=== PATIENT | female | born 1975 | race African-American/Black ===

== ENCOUNTER 2018-02-09 06:02 | Inpatient (IN) | payer OTHER ==
[2018-02-09] VITALS (15 sets, daily range): BP systolic 104–124; BP diastolic 56–80
[~2018-02-09] VITALS: Ht 160 cm; Wt 78.0 kg
[2018-02-09] MEDS ORDERED: NKM (06:47)
[2018-02-09] MEDS ORDERED: Succinylcholine 20mg/ml 10ml vial ONE (06:54)
[2018-02-09] MEDS ORDERED: Zemuron 50mg/5ml Inj IV ONE (06:54)
[2018-02-09] MEDS ORDERED: ceFAZolin sod 2 GM in D5W 110 ML IVPB ONE (07:00)
[2018-02-09] MEDS ORDERED: Vancomycin 1gm inj IVPB ONE (07:06)
[2018-02-09] MEDS ORDERED: Thrombin 5000 units TOPIC ONE ×2 (07:06→07:07)
[2018-02-09] MEDS ORDERED: Gelfoam Size TOPIC ONE (07:06)
[2018-02-09] MEDS ORDERED: Bupivacaine w/Epi 0.5% 30ml Vial INJ ONE (07:07)
[2018-02-09] MEDS ORDERED: Bacitracin 50000 Units Vial ONE (07:07)
[2018-02-09] MEDS ORDERED: Sterile Water Irrig 1000ml IRRIG ONE (07:30)
[2018-02-09] MEDS ORDERED: LR 1000ml ONE (07:30)
[2018-02-09] MEDS ORDERED: NS Irrig 1000ml ONE (07:30)
[2018-02-09] MEDS ORDERED: Propofol 1,000mg/ 100ml btl IV ONE (07:30)
[2018-02-09] MEDS ORDERED: Heparin 1000 units/ml 1ml Vial ONE (07:31)
[2018-02-09] MEDS ORDERED: Dexamethasone 4mg/ml vial ONE (08:21)
[2018-02-09] MEDS ORDERED: Morphine Sulfate 10mg/ml Inj ONE (08:58)
[2018-02-09] MEDS ORDERED: Sodium Chloride 10ml vial INJ ONE (08:59)
[2018-02-09] MEDS ORDERED: Glycopyrrolate 0.2mg/ml 1ml Vial ONE (09:00)
[2018-02-09] MEDS ORDERED: Ketorolac 30mg Inj ONE (09:00)
--- NOTE | 2018-02-09 09:16 | Anethesia Preoperative Eval ---
Anesthesia Pre-op PMH/ROS General Date of Evaluation: Feb 09, 2018 Time of Evaluation: 07:20 Anesthesiologist: Fortino ASA Score: ASA 2 Mallampati Score Class I : Soft palate, uvula, fauces, pillars visible Class II: Soft palate, uvula, fauces visible Class III: Soft palate, base of uvula visible Class IV: Only hard plate visible Mallampati Classification: Class II Surgeon: Chato Diagnosis: Cervical radiculopathy Surgical Procedure: ACDF C4-C5-C6 Anesthesia History: none Family History: no anesthesia problems Allergies: Coded Allergies: No Known Allergies (Unverified , 02/08/18) Medications: see eMAR Patient NPO?: Yes NPO Date: Feb 08, 2018 NPO Time: 2300 Past Medical History Cardiovascular: Denies: HTN, CAD, SD, valve dz, arrhythmia, other Pulmonary: Denies: asthma, COPD, SUZI, other Gastrointestinal/Genitourinary: Reports: GERD - mild; Denies: CRI, ESRD, other Neurologic/Psychiatric: Reports: other - chronic pain; Denies: dementia, CVA, depression/anxiety, TIA Endocrine: Denies: DM, hypothyroidism, steroids, other Hematology/Immune: Denies: anemia, DVT, bleeding disorder, other Musculoskeletal/Integumentary: Denies: OA, RA, DJD, DDD, edema, other Other: other - overweight PMH Narrative: as above PSxH Narrative: Myomectomy Anesthesia Pre-op Phys. Exam Physician Exam Last Vital Signs Date Time Temp Pulse Resp B/P (MAP) Pulse Ox O2 Delivery O2 Flow Rate FiO2 02/09/18 07:02 Room Air 02/09/18 06:59 98.0 84 18 124/67 (86) 98 Constitutional: NAD Neurologic: CN 2-12 intact Cardiovascular: RRR, no M/R/G Respiratory: CTA Gastrointestinal: S/NT/ND Airway Exam Mallampati Score: Class II MO: limited Neck: stiff ROM: limited Teeth: intact Dentures: no upper, no lower Anesthesia Pre-op A/P Labs see chart Urine Test Test 02/09/18 06:15 Urine HCG, Qualitative Negative (NEGATIVE) Studies Pre-op Studies: EKG - NSR Risk Assessment & Plan Assessment: ASA2 Plan: GA with ETT neuromonitoring, PONV prevention Status Change Before Surgery: No Pre-Antibiotics Drug: Ancef 2gr. Given Within 1 Hr of Incision: Yes Time Given: 08:11 Kevin Freitas MD Feb 09, 2018 09:16
[2018-02-09] MEDS ORDERED: LR 1000ml 1,000 ML IVLG SCH (09:19)
[2018-02-09] MEDS ORDERED: fentaNYL 100 mcg/2 mL IV PRN (09:30)
[2018-02-09] MEDS ORDERED: Meperidine 50mg/ml Inj(FOR RIGORS ONLY) IV PRN (09:30)
[2018-02-09] MEDS ORDERED: Ketorolac 30mg Inj IV PRN (09:30)
[2018-02-09] MEDS ORDERED: Metoclopramide 10mg/2ml Inj IVP PRN (09:30)
[2018-02-09] MEDS ORDERED: DiphenhydrAMINE 50mg/ml Inj IVP PRN (09:30)
[2018-02-09] MEDS ORDERED: Midazolam 2mg/2ml Inj IVP PRN (09:30)
[2018-02-09] MEDS ORDERED: Acetaminophen (Non formulary) 100 ML IV ONE (09:30)
[2018-02-09] MEDS ORDERED: Midazolam 2mg/2ml Inj ONE (10:25)
[2018-02-09] MEDS ORDERED: fentaNYL 100 mcg/2 mL IV ONE (10:25)
--- NOTE | 2018-02-09 11:10 | Immediate Post-Op Evaluation ---
Immediate Post-Op Evalulation Immediate Post-Op Evalulation Procedure: ACDF C4-C5-C6 Date of Evaluation: Feb 09, 2018 Time of Evaluation: 11:09 IV Fluids: 1000 Blood Products: none Estimated Blood Loss: 50 Urinary Output: 100 Blood Pressure Systolic: 108 Blood Pressure Diastolic: 73 Pulse Rate: 68 Respiratory Rate: 20 O2 Sat by Pulse Oximetry: 99 Temperature (Fahrenheit): 97.8 Pain Score (1-10): 1 Nausea: No Vomiting: No Complications none Patient Status: reacts, patent, extubated, none Hydration Status: adequate Kevin Freitas MD Feb 09, 2018 11:10
--- NOTE | 2018-02-09 12:31 | Brief Operative Note ---
Immediate Post Operative Note Operative Note Pre-op Diagnosis: cervical myeloradiculopathy with hnp and stenosis at C45 and C56 Procedure: acdf C45 and C56 Post-op Diagnosis: same as pre-op Findings: consistent w/pre-op dx studies Surgeon: Chato Baby Doctor: Sarina Anesthesiologist: Fortino Anesthesia: general Specimen: yes Complications: none Condition: stable Fluids: 1000cc Estimated Blood Loss: minimal - 20cc Drains: none Implant(s) used?: Yes Miguel Reis MD Feb 09, 2018 12:31
[2018-02-09] MEDS ORDERED: HYDROmorphone 1mg/ml Carpuject SUBQ PRN (12:45)
[2018-02-09] MEDS ORDERED: HYDROcodone/Acetamin 7.5/325 tab ORAL PRN (12:45)
[2018-02-09] MEDS ORDERED: HYDROmorphone 1mg/ml Carpuject IVP PRN (12:45)
[2018-02-09] MEDS ORDERED: Naloxone 0.4mg/ml Inj IVP PRN (12:45)
[2018-02-09] MEDS ORDERED: Norco 5mg/325mg tab ORAL PRN (12:45)
[2018-02-09] MEDS: D5 1/2NS 1,000 ML IV SCH ×2 (13:32→23:15)
--- NOTE | 2018-02-09 14:04 | Diagnostic Imaging Report ---
Indication: Intraoperative imaging Findings: 5 fluoroscopic views of the cervical spine were obtained. Anterior fusion C4-C6 noted with anterior compression plate, screws and discectomy. IMPRESSION: Intraoperative imaging
[2018-02-09] MEDS: ceFAZolin sod 1 GM in D5W 55 ML IV SCH ×2 (15:30→23:15)
[2018-02-09] MEDS ORDERED: Neostigmine 1mg/ml 10ml Inj ONE (17:30)
[2018-02-09] MEDS: Docusate 100mg cap ORAL SCH (17:36)
[2018-02-10] VITALS: BP 141/72
--- NOTE | 2018-02-10 | Operative Note - Dictated ---
DATE OF OPERATION: 02/09/2018 PREOPERATIVE DIAGNOSIS: C4-C5 and C5-C6 disk extrusion with spinal cord compression, stenosis, and myeloradiculopathy. POSTOPERATIVE DIAGNOSIS: C4-C5 and C5-C6 disk extrusion with spinal cord compression, stenosis, and myeloradiculopathy. PROCEDURE PERFORMED: 1. Anterior interbody arthrodesis at C4-C5 and C5-C6 with left anterior instrumentation at C4-C5 and C5-C6. 2. Insertion of biomechanical device at C4-C5 and C5-C6. 3. Placement of local autograft and allograft mass at C4-C5 and C5-C6 for arthrodesis. SURGEON: Miguel Reis M.D. ADVERTISING SPACE CLERK: Burton Branch M.D. ANESTHESIA: General endotracheal anesthesia. SPECIMEN: C4-C5 and C5-C6 disk. ANESTHESIOLOGIST: Dr. Kevin Freitas. ESTIMATED BLOOD LOSS: 20 mL. IV ANTIBIOTICS: 2 g of Ancef. COMPLICATIONS: None. BACKGROUND: This is a pleasant female with failed nonoperative treatment and option for above treatment was given. Risks, alternatives, and benefits were discussed with the patient at length. Risks include anesthesia complications including , medical complications including liver, kidney, and cardiopulmonary, gastrointestinal bleeding, infection, dysphonia, dysphagia, hematoma, nerve root injury, paralysis, spinal cord injury, CSF leak, dural tear, fracture of the hardware, loosening of the hardware, need for revision, decompression and fusion, swallowing difficulties, esophageal injury, tracheal injury, recurrent laryngeal nerve injury as well as other complications including compartment syndrome. The patient understood and wished to proceed. Written and verbal consent was given. No guarantees were given. OPERATIVE FINDINGS: Herniated nucleus pulposus at C4-C5 and C5-C6 with spinal cord compression, nerve root compression, impingement, central lateral recess, and foraminal stenosis. DESCRIPTION OF OPERATION: The patient was brought into the operating room supine on stretcher. Appropriate IV lines were placed by the anesthesiologist and 2 g of Ancef was administered. The patient was induced and intubated without complication. The patient was positioned onto the operating room stable. The neck was placed in neutral alignment. The arms were tucked by the side. All bony prominences were well padded as well as the four extremities. SSEP monitoring and EMG leads were placed and remained stable throughout. Preoperative fluoroscopy revealed the planned incision to be over the C5 vertebral body. Fluoroscopy showed the neck to be in adequate alignment. The neck was prepped and draped in the usual sterile fashion. At this point, a horizontal incision was carried out with a scalpel on the anterior right side of the neck in the crease of the neck. Hemostasis was achieved with bipolar cautery. The platysma was incised in line with the skin incision. Blunt dissection was carried out in the interval between the strap muscles and the sternocleidomastoid. Superficial cervical fascia was dissected caudally as well as cephalad. Carotid pulse was palpated and found to be well lateral to the field of dissection. Deep cervical fascia was encountered. Once the cervical fascia was found, blunt dissection with Kittners was used as well as finger dissection to find the prevertebral space. The longus colli was found on both sides of the spine. The longus coli was subperiosteally dissected off the spine. At this point, retractors from the Owner Manager System was placed. A spinal needle was used to identify the C4-C5 and then the C5-C6 interspace. A lateral fluoroscopy revealed positive identification of the C4-C5 and C5-C6 interbody spaces. The surgery was done with an intraoperatively sterilely draped microscope and this was done from skin incision to skin closure now. Retractors were set in place at C5-C6 and attention was diverted to doing a radical diskectomy with a straight and curved curettes, #2 and #3 Kerrison punches as well as a high-speed drill. A radical diskectomy was accomplished including a uncovertebrectomy to the level of the posterior longitudinal ligament. End plate shavings were saved for later implantation into the biomechanical device and drilling to the PLL was done. There was a large disk herniation centrally in the lateral recess and intraforaminally causing impingement at the neural elements with a #1 and #2 Microsect curettes. The PLL was removed and with #1 and #2 Kerrison punches a thorough decompression of the central canal lateral recess and foraminal regions was done and complete decompression of the exiting nerve roots bilaterally. Valsalva was done at 40 mmHg and there was no CSF leak. Now, attention was diverted to the C4-C5 level. Retractors were moved to that level, and with the same instruments, a radical diskectomy was done. Bone was preserved for later implantation for arthrodesis and disk herniation was found centrally, lateral recess and intraforaminal causing impingement of the spinal cord with spinal cord compression as well as the exiting nerve roots bilaterally. The #1 and #2 Microsect curettes were used to remove the posterior longitudinal ligament. A complete decompression to central canal, lateral recess, and foramina entailed including the exiting nerve roots. A Valsalva at 40 mmHg was done. There was no CSF leak and now attention was diverted to measurements of the disk space including trials in from the [employer] system. Trials within the place and two 14.5 x 12 x 6 mm 7-degree [employer] 3D Printed cervical biomechanical devices were chosen, packed with Lorene putty and local autograft and tamped into place at the C5-C6 and C6-C7 levels with excellent recreation of disk height, lordosis, and indirect decompression for the exiting nerve roots bilaterally. Endplate bone was preserved and there was no subsidence. Both biomechanical devices sat in excellent position with apposition against the endplates. Now, a [place] RTI Aspect cervical plate 26 mm in length was chosen and bent into a lordotic fashion. Lateral and AP fluoroscopy was used and found the plate to be of adequate length and size and with 14 mm self-drilling screw with cervical plate was attached to the anterior surface of the C4, C5 and C6 vertebral bodies with 14 mm self-drilling screws. Each screw had excellent purchase and found below the locking mechanism adequately. Now, final AP and lateral fluoroscopy was done. All instrumentation was in excellent position. The wound was copiously irrigated with triple antibiotic solution multiple times during the case and there was no bleeding, and therefore decision was made not to use a Hemovac drain. Attention was now given to closure. The platysma was closed with 3-0 Vicryl sutures. The subcuticular layer was closed with 3-0 Monocryl suture. The skin was closed with Dermabond sterile dressing. A C-collar was placed. The patient was extubated, was found to be neurovascularly intact, and was taken to the recovery room in stable condition and was admitted to the hospital for monitoring. Miguel Reis M.D. DR: LOCO JOB#: [id number] CC:
[2018-02-10 04:00] VITALS: BP 132/68
[2018-02-10 08:00] VITALS: BP 141/81
[2018-02-10] MEDS: HYDROcodone/Acetamin 7.5/325 tab ORAL PRN ×3 (08:16→20:03)
[2018-02-10] MEDS: ceFAZolin sod 1 GM in D5W 55 ML IV SCH (08:17)
[2018-02-10] MEDS: D5 1/2NS 1,000 ML IV SCH ×2 (09:01→19:09)
--- NOTE | 2018-02-10 09:27 | 48 Hour Post Anesthesia Eval ---
Post Anesthesia Evaluation Procedure: ACDF C4-C5-C6 Date of Evaluation: Feb 10, 2018 Time of Evaluation: 09:25 Blood Pressure Systolic: 128 0: 74 Pulse Rate: 68 Respiratory Rate: 20 Temperature (Fahrenheit): 97.6 O2 Sat by Pulse Oximetry: 97 Airway: patent Nausea: No Vomiting: No Pain Intensity: 3 Hydration Status: adequate Cardiopulmonary Status: stable Mental Status/LOC: patient returned to baseline Follow-up Care/Observations: n/a Post-Anesthesia Complications: none Follow-up care needed: N/A Kevin Freitas MD Feb 10, 2018 09:27
[2018-02-10] MEDS: Docusate 100mg cap ORAL SCH ×2 (09:33→18:14)
[2018-02-10 12:00] VITALS: BP 140/79
--- NOTE | 2018-02-10 13:37 | Pre-Procedure Note/Attestation ---
Pre-Procedure Note/Attestation Complete Prior to Procedure Procedure Narrative: acdf c45 and c56 Indications for Procedure Pre-Operative Diagnosis: cervical myeloradiculopathy with hnp and stenosis at C45 and C56 Attestation I attest that I discussed the nature of the procedure; its benefits; risks and complications; and alternatives (and the risks and benefits of such alternatives ), prior to the procedure, with the patient (or the patient's legal outside sales account representative). I attest that, if there was a reasonable possibility of needing a blood transfusion, the patient (or the patient's legal outside sales account representative) was given the [facility] standardized written summary, pursuant to the Javad [place] Blood Safety Act ([place] Health and Safety Code # 1645, as amended). I attest that I re-evaluated the patient just prior to the surgery and that there has been no change in the patient's H&P, except as documented below: Miguel Reis MD Feb 10, 2018 13:37
[2018-02-10] MEDS: Cyclobenzaprine 10mg Tab ORAL PRN (14:46)
[2018-02-10 16:00] VITALS: BP 138/78
[2018-02-10 20:11] VITALS: BP 145/71
--- NOTE | 2018-02-10 20:51 | Cardiology Progress Note ---
Assessment/Plan Assessment/Plan full note dictated dvt ppx ambualte has dysphagia to discuss with dr artis in am home soon Objective Last 24 Hour Vital Signs Date Time Temp Pulse Resp B/P (MAP) Pulse Ox O2 Delivery O2 Flow Rate FiO2 02/10/18 20:36 98.2 02/10/18 20:15 Room Air Room Air 02/10/18 20:11 98.2 73 18 145/71 (95) 96 02/10/18 16:00 99.2 70 18 138/78 (98) 95 02/10/18 15:16 98.5 02/10/18 12:00 98.5 73 18 140/79 (99) 98 02/10/18 09:27 68 20 97 02/10/18 09:00 Room Air Room Air 02/10/18 08:00 98.2 73 19 141/81 (101) 93 02/10/18 04:00 98.5 84 18 132/68 (89) 96 02/10/18 00:00 98.1 78 20 141/72 (95) 96 02/09/18 21:00 Room Air Room Air Intake and Output 02/09/18 02/10/18 19:00 07:00 Intake Total 1700 ml Output Total 150 ml Balance 1550 ml Intake Oral 250 ml IV Total 1450 ml Output Urine Total 100 ml Estimated Blood Loss 50 ml Alexys Be MD Feb 10, 2018 20:51
[2018-02-11] MEDS: HYDROcodone/Acetamin 7.5/325 tab ORAL PRN ×4 (00:52→22:17)
[2018-02-11 04:00] VITALS: BP 139/79
[2018-02-11] MEDS: D5 1/2NS 1,000 ML IV SCH ×2 (05:04→14:57)
--- NOTE | 2018-02-11 06:00 | Consultation ---
DATE OF CONSULTATION: 02/10/2018 CARDIOLOGY CONSULTATION CONSULTING PHYSICIAN: Alexys Be M.D. REFERRING PHYSICIAN: Miguel Reis M.D. REASON FOR REFERRAL: Postoperative medical care. HISTORY OF PRESENT ILLNESS: The is a 42-year-old female, who has undergone cervical spine surgery earlier today. She is being seen postoperatively. She thinks her main issue is discomfort on swallowing and pain at the surgical site and pain in bilateral shoulders. She does not have any chest pain or pressure. There is no PND. No orthopnea. No palpitation. She was dizzy earlier today. She had some nausea as well. PAST MEDICAL HISTORY: Nonsignificant and she denies any diabetes, high blood pressure, or high cholesterol. No history of heart attack, cancer, stroke, hepatitis, tuberculosis, asthma, emphysema, ulcers, kidney problems, liver problems, thyroid problems, anemia, arthritis, HIV or AIDS, or blood clots. ALLERGIES: She is not allergic to any medications. SOCIAL HISTORY: She does not smoke, drink, or use drugs. REVIEW OF SYSTEMS: GASTROINTESTINAL: She had some nausea earlier, but that has resolved. Does note some discomfort on swallowing, otherwise negative. GENITOURINARY: Negative. PULMONARY: Negative. CONSTITUTIONAL: Negative. NEUROLOGICAL: Negative. PHYSICAL EXAMINATION: GENERAL: Shows to be middle-aged female, in no respiratory distress. A hard collar in place, and dressing appeared to be clean and dry. LUNGS: Clear to auscultation and percussion. CARDIAC: S1 is normal. S2 is normal. Regular rate and rhythm. No heaves, thrills, or gallops noted. ABDOMEN: Soft and nontender. Positive bowel sounds. EXTREMITIES: There is no clubbing, cyanosis, or edema. NEUROLOGIC: She is awake, alert, and responsive. Moves all four extremities. ASSESSMENT AND PLAN: 1. C4-C5 and C5-C6 spinal cord compression, stenosis, and myeloradiculopathy. 2. Dysphagia postop. The patient was seen in medical consultation. The patient appears to be relatively well. Her vital signs appear to be stable. Postoperatively, she is afebrile with adequate oxygen on room air. Her main issue is discomfort on swallowing, related to her postoperative status. She has no other signs or symptoms of issues. provided as needed. If she is able to walk around, her swallowing is adequately controlled, and she has bowel movements and able to eat, she would be discharged home. Alexys Be M.D. DR: MARSHA JOB#: [id number] CC:
[2018-02-11 08:00] VITALS: BP 126/86
[2018-02-11] MEDS: Docusate 100mg cap ORAL SCH ×2 (08:31→17:48)
[2018-02-11] MEDS: Cyclobenzaprine 10mg Tab ORAL PRN ×2 (10:55→17:49)
[2018-02-11 11:56] VITALS: BP 138/79
[2018-02-11 16:00] VITALS: BP 134/81
--- NOTE | 2018-02-11 18:08 | General Progress Note ---
Subjective Allergies: Coded Allergies: No Known Allergies (Unverified , 02/08/18) Subjective Feeling better; mild difficulty with swallowing; pain improving; no arm pain avss a and o times 3 5/5 in the ue and the le calves soft and nt lt intact doing well post op oob pt c collar dc planning follow up in 7 to 10 days Objective Last 24 Hour Vital Signs Date Time Temp Pulse Resp B/P (MAP) Pulse Ox O2 Delivery O2 Flow Rate FiO2 02/11/18 16:00 98.5 85 18 134/81 (98) 93 02/11/18 11:56 98.7 74 18 138/79 (98) 95 02/11/18 09:00 Room Air Room Air 02/11/18 08:00 97.3 86 20 126/86 (99) 98 02/11/18 06:07 98.2 02/11/18 04:00 98.2 68 18 139/79 (99) 95 02/10/18 20:15 Room Air Room Air 02/10/18 20:11 98.2 73 18 145/71 (95) 96 Intake and Output 02/10/18 02/11/18 18:59 06:59 Intake Total 990 ml 1480 ml Balance 990 ml 1480 ml Intake Oral 990 ml 380 ml IV Total 1100 ml # Voids 1 3 Height (Feet): 5 Height (Inches): 3.00 Weight (Pounds): 172 Miguel Reis MD Feb 11, 2018 18:08
--- NOTE | 2018-02-11 20:21 | Cardiology Progress Note ---
Assessment/Plan Assessment/Plan 1. C4-C5 and C5-C6 spinal cord compression, stenosis, and myeloradiculopathy. 2. Dysphagia postop doign well . swallowing better gogin hoem tomorrow amublated already Subjective Cardiovascular: Reports: lightheadedness; Denies: chest pain, palpitations Respiratory: Reports: other - less sore throat ; Denies: shortness of breath Gastrointestinal/Abdominal: Denies: abdominal pain Genitourinary: Denies: burning Objective Last 24 Hour Vital Signs Date Time Temp Pulse Resp B/P (MAP) Pulse Ox O2 Delivery O2 Flow Rate FiO2 02/11/18 16:00 98.5 85 18 134/81 (98) 93 02/11/18 11:56 98.7 74 18 138/79 (98) 95 02/11/18 09:00 Room Air Room Air 02/11/18 08:00 97.3 86 20 126/86 (99) 98 02/11/18 06:07 98.2 02/11/18 04:00 98.2 68 18 139/79 (99) 95 General Appearance: alert, other - hard collar in place dry dressing Neck: supple Cardiovascular: normal rate, regular rhythm Respiratory/Chest: lungs clear, normal breath sounds Abdomen: normal bowel sounds, non tender, soft Extremities: no swelling Intake and Output 02/10/18 02/11/18 19:00 07:00 Intake Total 990 ml 1580 ml Balance 990 ml 1580 ml Intake Oral 990 ml 380 ml IV Total 1200 ml # Voids 1 3 Microbiology Date/Time Source Procedure Growth Status 02/09/18 06:25 Nasal Nares MRSA Culture - Final NO METHICILLIN RESISTANT STAPH AUREUS... Complete Alexys Be MD Feb 11, 2018 20:21
[2018-02-11 20:36] VITALS: BP 136/83
[2018-02-11] MEDS ORDERED: Tubing IV Secondary IV ONE (21:51)
[2018-02-11] MEDS ORDERED: D5 1/2NS 1000ml IV ONE ×2 (21:51→21:52)
[2018-02-12] VITALS: BP 130/84
[2018-02-12] MEDS: D5 1/2NS 1,000 ML IV SCH ×2 (00:54→09:22)
[2018-02-12 04:00] VITALS: BP 151/86
[2018-02-12] MEDS: HYDROcodone/Acetamin 7.5/325 tab ORAL PRN ×2 (07:40→13:02)
[2018-02-12 08:00] VITALS: BP 141/85
[2018-02-12] MEDS: Docusate 100mg cap ORAL SCH (08:54)
[2018-02-12] MEDS ORDERED: CYCLOBENZAPRINE10 MG ORAL (09:08)
[2018-02-12] MEDS ORDERED: NORCO 5-325 TA1 EACH ORAL (09:09)
[2018-02-12 12:00] VITALS: BP 149/99
[2018-02-12] MEDS ORDERED: D5 1/2NS 1000ml IV ONE (13:38)
--- NOTE | 2018-02-15 15:33 | Discharge Summary ---
Discharge Summary Hospital Course Date of Admission Feb 09, 2018 at 06:02 Date of Discharge Feb 12, 2018 at 13:39 Admitting Diagnosis CERVICAL RADICULOPATHY Reason for Hospitalization: elective surgery HPI Miky Silva is a 42 year old female who was admitted on Feb 09, 2018 at 06: 02 for cervical myeloradiculopathy with herniated nucleus pulposus and stenosis at C4-5 and C5-6. Patient was admitted for elective surgery . Consultations dr Be - IM/cardio Procedures s/p 02/09/[address] Reis 1. Anterior interbody arthrodesis at C4-C5 and C5-C6 with left anterior instrumentation at C4-C5 and C5-C6. 2. Insertion of biomechanical device at C4-C5 and C5-C6. 3. Placement of local autograft and allograft mass at C4-C5 and C5-C6 for arthrodesis. Hospital Course status post surgery course of recovery uneventful initially IV fluids s/p perioperative antibiotics neurovascular status closely monitored, stable incision clean dry and intact cervical collar on ice pack as needed for comfort pain management addressed , pain controlled hemodynamically stable ambulated with PT fall precautions maintained; safe for ambulation tolerated liquid diet , Chloraseptic spray as needed for comfort advance at home to soft diet as tolerated for the first few days IV fluids discontinued GI prophylaxis provided antiemetics were on board as needed voided freely bowel regimen instituted patient was stable for discharge discharge instructions provided follow up with surgeon as advised FINAL DIAGNOSES C4-C5 and C5-C6 disk extrusion with spinal cord compression, stenosis, and myeloradiculopathy. s/p ACDF C4-5, C5-6 Dysphagia , postoperatively Discharge Medications Continued Medications: Cyclobenzaprine Hcl* (Flexeril*) 10 Mg Tablet 10 MG ORAL QHS for muscle spasm, #30 TAB (This prescription has been renewed) Hydrocodone Bit/Acetaminophen 5-325* ([place] 5-325*) 1 Each Tablet 1 TAB ORAL Q6H PRN for For Pain, #40 TAB 0 Refills (This prescription has been renewed) Discharge Condition Upon Discharge: stable Discharge Disposition Patient was discharged to Home (01) Discharge Instructions Discharge Instructions Special Instructions I have been assigned to complete a D/C Summary on this account. I was not involved in the patient management Rohini Shannon NP Feb 15, 2018 15:33
== END 2018-02-12 13:39 | disposition home or self-care (01) | DRG 472 ==
LOC: SDSOVERFLO 06:02 → 3E 12:31
PROC: 0RT30ZZ Resection of Cervical Vertebral Disc, Open Approach (ICD-10-PCS; principal; 2018-02-09 07:30)
PROC: 0RG20A0 Fusion of 2 or more Cervical Vertebral Joints with Interbody Fusion Device, Anterior Approach, Anterior Column, Open Approach (ICD-10-PCS; principal; 2018-02-09 07:30)
DX: M50.121 Cervical disc disorder at C4-C5 level with radiculopathy (principal); M50.021 Cervical disc disorder at C4-C5 level with myelopathy; M48.02 Spinal stenosis, cervical region; R13.10 Dysphagia, unspecified
CPT/HCPCS: 36415; 72040; 76001; 81025; 86850; 86900; 86901; 87081; 94003; 94150; J2250; J2405; J2710; J2765